=== PATIENT | male | born 1985 | race Hispanic/Latino ===

== ENCOUNTER 2017-09-20 19:31 | Emergency (ER) | payer SELFPAY ==
[2017-09-20] MEDS ORDERED: IBUPROFEN 600 MG TABLET ONE (20:44)
== END 2017-09-20 22:19 | disposition home or self-care (01) ==
LOC: EDH 19:31
DX: J11.1 Influenza due to unidentified influenza virus with other respiratory manifestations (principal)
CPT/HCPCS: 87804